=== PATIENT | male | born 1955 | race Caucasian/White ===

== ENCOUNTER → 2017-08-16 | Outpatient (CLI) | payer BC, OTHER ==
[~2017-08-16] MED LIST: ASPI-588; CALC-102; CHOL100013; CYAN100016; EXEN2VIA; INSU100I17; LISI-376; LOSA25TA4 PO; METF-154; MULT-245; NIAC1000; OMEG-168; OSTEO BI-FLEX1 EAC1; PIOG30TA41; POTA500C; RISE150T3; SIMV40TA; VITA1TAB
--- NOTE | 2017-08-16 09:20 | RAD ---
Examination: Ultrasound right lower extremity venous duplex HISTORY: History of right leg pain, swelling COMPARISON: None available Technique: Grayscale, color Doppler 2-D, spectral waveforms of the right lower extremity venous system were performed. FINDINGS: The visualized common femoral vein, superficial femoral vein, popliteal vein demonstrate normal compression and augmentation of flow. The visualized calf veins are patent. IMPRESSION: No evidence of deep venous thrombosis identified in the right lower extremity venous system. Electronically signed by: Silverio Maynard MD (08/16/2017 9:16 AM) [id number]
== END | disposition home or self-care (01) ==
LOC: US 08:27
PROVIDERS: ATTEND Physician Assistant Medical
DX: M25.461 Effusion, right knee (principal)
CPT/HCPCS: 93971